=== PATIENT | female | born 1970 | race Asian ===

== ENCOUNTER 2019-09-28 20:22 | Emergency (ER) | payer BC | END 2019-09-28 20:42 | disposition home or self-care (01) | LOC: SCSER 20:22 | DX: S16.1XXA Strain of muscle, fascia and tendon at neck level, initial encounter (principal); V89.2XXA Person injured in unspecified motor-vehicle accident, traffic, initial encounter | CPT/HCPCS: 99283; L0120 ==

== ENCOUNTER 2022-12-14 15:59 | Outpatient (CLI) | payer BC | END 2022-12-14 16:00 | disposition home or self-care (01) | LOC: SCSRAD 15:59 | PROVIDERS: ATTEND Physician Assistant | DX: M25.562 Pain in left knee (principal) ==